=== PATIENT | female | born 1950 | race Two or more races ===

== ENCOUNTER → 2016-12-25 | Outpatient (CLI) | payer OTHER, BC | END | disposition home or self-care (01) | LOC: RD 15:10 | DX: J40 Bronchitis, not specified as acute or chronic (principal) ==

== ENCOUNTER → 2017-04-03 | Outpatient (CLI) | payer OTHER, BC | END | disposition home or self-care (01) | LOC: RD 15:09 → CT 15:09 | PROC: B922ZZZ Computerized Tomography (CT Scan) of Paranasal Sinuses (ICD-10-PCS; principal; 2017-04-03) | PROC: BW28ZZZ Computerized Tomography (CT Scan) of Head (ICD-10-PCS; 2017-04-03) | DX: J32.9 Chronic sinusitis, unspecified (principal) ==

== ENCOUNTER 2017-06-19 12:04 | Emergency (ER) | payer OTHER, BC ==
[2017-06-19 14:25] LABS: BASOPHIL % 0.3 % (0-2); PLATELET COUNT 208 x10^3mcL (130-400); RED CELL DISTRIBUTION WIDTH 14.3 % (11.5-14.5)
[2017-06-19 14:32] VITALS: BP 148/68
[2017-06-19 14:37] LABS: CALCIUM 9.3 mg/dL (8.5-10.1); CARBON DIOXIDE 31.7 mmol/L (21-32); CREATININE SERUM 1.2 mg/dL (0.6-1.0); POTASSIUM SERUM 4.4 mmol/L (3.5-5.1)
[2017-06-19 14:41] LABS: ALBUMIN 3.7 g/dL (3.4-5.0); BILIRUBIN TOTAL 0.3 mg/dL (0.20-1.00); TOTAL PROTEIN, SERUM 8.2 g/dL (6.4-8.2)
== END 2017-06-19 14:32 | disposition home or self-care (01) ==
LOC: ED 12:04
PROVIDERS: Emergency Medicine
DX: S02.82XA Fracture of other specified skull and facial bones, left side, initial encounter for closed fracture (principal); S02.2XXA Fracture of nasal bones, initial encounter for closed fracture; I11.0 Hypertensive heart disease with heart failure; I50.9 Heart failure, unspecified; E11.9 Type 2 diabetes mellitus without complications; Z79.4 Long term (current) use of insulin; W18.2XXA Fall in (into) shower or empty bathtub, initial encounter; Y93.89 Activity, other specified; Y92.002 Bathroom of unspecified non-institutional (private) residence as the place of occurrence of the external cause; Y99.8 Other external cause status
CPT/HCPCS: 36415